=== PATIENT | female | born 1995 | race Caucasian/White ===

== ENCOUNTER 2016-06-10 16:18 | Emergency (ER) | payer SELFPAY ==
[~2016-06-10] VITALS: Ht 167.6 cm; Wt 63.5 kg
[~2016-06-10 16:18] MED LIST: IBUP600 PO
[2016-06-10 16:20] VITALS: BP 135/85; PULSE 91; RESP 16; TEMP 98.2; O2SAT 98
--- NOTE | 2016-06-10 16:26 | PD ---
HPI . acute on chronic foot pain Chief Complaint: Injury Time Seen by Provider: 16:26 Travel History International Travel<30 days: No Contact w/Intl Traveler<30days: No Traveled to known affect area: No History of Present Illness HPI 21-year-old female with chronic foot issues who wears orthotics for all of her life here with complaints of foot pain on the right side. Patient said she's had chronic foot pain her whole life and her dog somewhat twisted her foot a few days ago and she is here complaining of exacerbation of pain in her right foot. She knows that she needs to see a forming press operator and was hoping that somehow the ER could arrange a visit as she doesn't think [facility] can do this for her. She tells me she is from [place] and didn't know what else to do. She is needing a podiatry consultation. PFSH Past Medical History Cardiovascular Problems: Yes (HOLE IN HEART) ?: Not LMP: 05/2016 Social History Alcohol Use: No Tobacco Use: No Substance Use: No Allergies-Medications (Allergen,Severity, Reaction): Coded Allergies: No Known Allergies (Unverified , 06/10/16) Reported Meds & Prescriptions Reported Meds & Active Scripts Active Motrin 600 Mg Tab (Ibuprofen) 600 Mg Tab 600 Mg PO Q6H PRN Review of Systems General / Constitutional: No: Fever Eyes: No: Visual changes HENT: No: Headaches Cardiovascular: No: Chest Pain or Discomfort Respiratory: No: Shortness of Breath Gastrointestinal: No: Abdominal Pain Genitourinary: No: Dysuria Musculoskeletal: Positive: Pain (right foota pain) Skin: No Rash Neurologic: No: Weakness Psychiatric: No: Depression Endocrine: No: Polydipsia Hematologic/Lymphatic: No: Easy Bruising Physical Exam Narrative GENERAL: AAO x 3, no acute distress, Well-nourished, well-developed patient. SKIN: Warm and dry. No visible rashes or bruising. HEAD: Normocephalic and atraumatic. EYES: No scleral icterus. No injection or drainage. ENT: No nasal drainage noted. Airway patent. NECK: Supple, trachea midline. No JVD. CARDIOVASCULAR: Regular rate and rhythm without murmurs, gallops, or rubs. RESPIRATORY: Breath sounds equal bilaterally. No accessory muscle use. No rhonchi or rales. GASTROINTESTINAL: Visual inspection is normal EXTREMITIES: No cyanosis or edema. Bilateral feet normal. Pedal pulses are intact. Toes are all mobile. Bilateral ankles are mobile. There is no edema. No abnormality on physical exam. BACK: Nontender without obvious deformity. No CVA tenderness. PSYCH: AAO x 3, normal affect. Data Data Last Documented VS Vital Signs Date Time Temp Pulse Resp B/P Pulse Ox O2 Delivery O2 Flow Rate FiO2 06/10/16 16:20 98.2 91 16 135/85 98 MDM Medical Decision Making Medical Screen Exam Complete: Yes Emergency Medical Condition: No Medical Record Reviewed: Yes Differential Diagnosis chronic foot pain, less likely foot fracture, Narrative Course 21-year-old female with chronic foot issues who wears orthotics for all of her life here with complaints of foot pain on the right side. Patient said she's had chronic foot pain her whole life and her dog somewhat twisted her foot a few days ago and she is here complaining of exacerbation of pain in her right foot. She knows that she needs to see a forming press operator and was hoping that somehow the ER could arrange a visit as she doesn't think [facility] can do this for her. She tells me she is from [place] and didn't know what else to do. She is needing a podiatry consultation. Patient seen and examined. I do not find any acute abnormalities wrong with her feet. I do not recommend x-ray. This is a chronic issue. She ultimately needs to see a forming press operator and was under the impression that we would be able to find one in the emergency department for her. She is concerned as her insurance is from [place] and she doesn't think she' ll be able to find a provider locally. I've advised her to recheck to [facility] to see if they can help navigate her care. She is upset because I do not have a forming press operator to see her for her feet today. I explained that this is not a medical emergency. She seemed understanding. A medical screening exam was performed: At the time of evaluation the presenting medical condition was determined not to be of an emergent nature. The patient was given the option of receiving additional care, but declined. Patient was given options for additional community resources from which to obtain care. The Patient Has Been advised to seek medical attention for their presenting complaint. The patient has been advised to return to the ER at any time if an emergent condition develops. Diagnosis Primary Impression: Encounter for medical screening examination Condition: Stable Tanvi Telles Jun 10, 2016 16:26
== END 2016-06-10 17:07 | disposition left against medical advice (07) ==
LOC: NEPK 16:18
DX: M79.671 Pain in right foot (principal)
CPT/HCPCS: 99281